=== PATIENT | female | born 1985 | race Caucasian/White ===

== ENCOUNTER → 2021-08-25 11:04 | Outpatient (CLI) | payer OTHER, SELFPAY ==
[2021-08-25 12:13] LABS: Add Manual Diff / Slide Review NO; Basophils Absolute Auto 0 /uL (0-100); Basophils Percent Auto 0.5 % (0-2); Eosinophils Absolute Auto 100 /uL (0-450); Eosinophils Percent Auto 0.8 % (2-4); Hematocrit 40.5 % (36-46); Lymphocytes Absolute Auto 2600 /uL (1100-4500); Mean Corpuscular HGB Conc 32.2 % (30-36); Mean Corpuscular Hemoglobin 26.4 PG (26-34); Monocytes Absolute Auto 600 /uL (0-900); Monocytes Percent Auto 8.1 % (3-14); Neutrophils Absolute Auto 4000 /uL (1500-7000); Neutrophils Percent Auto 54.6 % (50-75); Platelet Count 434 X10^3/uL (150-400); Red Blood Cell Count 4.94 X10^6/uL (4.0-5.2); White Blood Cell Count 7.3 X10^3/uL (4.5-11.0)
[2021-08-25 13:05] LABS: Free T4, Direct Thyroxine 1.12 ng/dL (0.78-2.19)
[2021-08-25 13:19] LABS: Thyroid Stimulating Hormone 4.58 uIU/mL (0.47-4.68)
== END ==
PROVIDERS: Referring Provider Obstetrics & Gynecology; Visit Provider Obstetrics & Gynecology
DX: N93.9 Abnormal uterine and vaginal bleeding, unspecified (principal)
CPT/HCPCS: 36415; 84439; 84443; 85025

== ENCOUNTER → 2021-11-07 16:41 | Outpatient (CLI) | payer OTHER, SELFPAY ==
[2021-11-11 06:19] LABS: Candida species Negative (Negative); Gardnerella vaginalis Positive (Negative); Trichomoas vaginalis Negative (Negative)
== END ==
PROVIDERS: Visit Provider Obstetrics & Gynecology
DX: N76.0 Acute vaginitis (principal)
CPT/HCPCS: 87070; 87205; 87480; 87510; 87660

== ENCOUNTER → 2022-07-01 14:48 | Outpatient (CLI) | payer OTHER, SELFPAY ==
[2022-07-01 17:13] LABS: COVID19 -Nasal RAPID Negative (Negative)
== END ==
PROVIDERS: PCP Family Medicine; Visit Provider Obstetrics & Gynecology
DX: Z20.822 Contact with and (suspected) exposure to COVID-19 (principal); Z01.812 Encounter for preprocedural laboratory examination
CPT/HCPCS: 87635

== ENCOUNTER 2022-07-02 12:24 | Day surgery (SDC) | payer OTHER, SELFPAY ==
[2022-07-01 13:52] VITALS: BMI 48.2
[2022-07-02 12:54] VITALS: BP 150/87; PULSE 89; RESP 20; TEMP 36.6; O2SAT 98; BMI 48.2
[2022-07-02] MEDS: SCOPOLAMINE 1 PATCH TOP (13:08)
[2022-07-02] MEDS: ACETAMINOPHEN IV 1,000 MG/100 ML VIAL 400 MG IV (13:08)
[2022-07-02] MEDS: LACTATED RINGERS 1,000 ML 42 ML IV (13:09)
--- NOTE | 2022-07-02 13:38 | PM.PREOP ---
Pre-operative Note COVID-19 COVID-19 status: Negative Result date/Date tested (Pos, Neg/Pending): 07/01/22 Criteria for continued procedure: Non-surgical alternatives not available or appropriate per current SOC Interval Note History & Physical reviewed/Exam performed by Physician: Yes Changes to H&P: No
--- NOTE | 2022-07-02 14:23 | SUR.OPER ---
Lithotomy on padded OR bed. [place] Pad Positioner under torso. Head on pillow, arms padded and tucked at sides. Legs secured in padded yellow fins stirrups. wedge under torso, under pink pad
[2022-07-02] MEDS: CEFAZOLIN 3 GM IN 0.9 % NACL 3 GM/100 ML PLAST..BAG IV (14:40)
[2022-07-02 15:16] VITALS: BP 177/99; PULSE 106; RESP 12; TEMP 36.4; O2SAT 99
[2022-07-02 15:19] VITALS: BP 183/102; PULSE 96; RESP 18; O2SAT 100
--- NOTE | 2022-07-02 15:19 | P.OP_ITS ---
Operative Date/Time/Diagnoses Date of procedure: 07/02/22 Time of procedure: 14:00 Pre-op diagnosis: Menorrhagia Malpositioned intrauterine device Post-op diagnosis: same Procedure & Clinicians Procedure: Procedures Operation Date: 07/02/22 13:30 Actual Procedure Side Surgeon p laparoscopy with IUD removal (aborted laparoscopic hysterectomy) Jay Jay Wild MD Indications: Tiara is a 37-year-old nulligravida, LMP 06/15/2022 - 06/20/2022 with extremely heavy flow, clots, and cramping who presented earlier this year for discussion of options related to her long history of heavy and unpredictable menses.? Menarche occurred at age 16 and she was placed on oral contraceptives at age 18 due to becoming sexually active.? She was switch to NuvaRCoolerado as a senior in college which worked extremely well.? After year 2 of NuvaRing use however her insurance coverage changed and would not cover NuvaRing you so she returned to the use of combination oral contraceptives which resulted in continuous breakthrough bleeding.? Her periods also were starting to become longer and heavier but remain regular with the breakthrough bleeding.? She subsequently returned to using NuvaRing after a couple of years of combination OC use but the use of NuvaRing was not as effective as it had been previously.? In June [address] Caro Yang in our office where options were discussed and blood work performed which showed that she was not anemic and had normal thyroid studies.? She was initiated on Depo-Provera which provided some improvement initially but the improvement with short lived in her periods returned to being extremely heavy.? Following the trial of Depo-Provera, she had a Mirena IUD inserted in September 2021 which was extremely painful and the pain lingered for several weeks after insertion.? Her bleeding again improved initially but since November 2021 the patient has had monthly periods lasting 7-10 days with the 1st 3-4 days being extremely heavy requiring at least 2 menstrual diapers daily and at least 1 menstrual diaper daily for the remainder of the.? Her cramping has been mild but she is passing large clots.? Her last Pap smear was 2 years ago and it was normal along with all her previous Paps.? Patient has never had endometrial biopsy performed and has never been trialed on tranexamic acid.? Recent pelvic ultrasound performed 04/16/2022 at [facility] shows the uterus to be retroverted and normal in size at 6.9 x 3.4 x 5.3 cm.? The myometrium is described as homogeneous.? The endometrium measures 7-8 mm in combined thickness.? The IUD is abnormally low lying and seen within the cervical canal.? The ovaries are both normal in size with the right ovary measuring 3.1 x 3.5 x 2.6 cm and the left measuring 2.3 x 2.6 x 1.9 cm.? The ovary 7 normal sonographic appearance with a dominant follicle seen involving the right ovary that measures 2.4 cm which is considered to be within physiologic limits.? Less than 12 follicles can be seen involving each ovary and no adnexal masses were noted. The patient is extremely frustrated by her extremely heavy periods which leave her unable to perform many of her normal daily activities and unable to work at times.? Use of combination oral contraceptives and NuvaRing have not been beneficial.? Insertion of her Mirena IUD was exceedingly painful and has not provided any significant benefit.? Patient has been counseled extensively regarding options and does not wish to have an endometrial ablation performed as no guarantee can be made that she will be amenorrheic following the procedure.? She also declines a trial of tranexamic acid and does not wish to have an endometrial biopsy performed.? She understands that although unlikely, the presence of an occult endometrial neoplasm can not be excluded without endometrial sampling.? Her strong desire is to proceed with hysterectomy and bilateral salpingectomy with ovarian preservation.? She understands the potential risks and complications associated with such procedure and is adamant in her desire to proceed.? Options were discussed to include total laparoscopic hysterectomy with bilateral salpingectomy or laparoscopic supracervical hysterectomy with bilateral salpingectomy and she would prefer total laparoscopic hysterectomy since no Paps will be required following TLH.? She presents today for for her scheduled surgery. Surgeon: Jay Jay Wild Operations Inspector: Francy Colon Anesthesia Type: General Operative Notes Findings: The introitus is virginal thus and the vaginal diameter narrow. Speculum examination under anesthesia shows the inferior tip of the Mirena IUD protruding from the cervical os with strings attached. The IUD was removed intact. The uterine cavity sounds to 8 cm in the mid plane. Laparoscopy shows the uterus to be upper limits of normal size and confirms its mid-plane orientation. The anterior cul-de-sac is without adhesions or other abnormalities. 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 Both ovaries appeared to be normal in size and the fallopian tubes are also normal. The appendix could not be visualized. The upper abdomen is normal to laparoscopic inspection. There was a large band of what appears to be adipose tissue extending from the anterior abdominal wall down into the lower abdomen immediately ventral to anterior cul-de-sac which obscured visualization of the pelvis to the point that the pelvis could not be fully visualized. This large band of tissue was hanging downward from the anterior abdominal wall and without the ability to fully visualize the pelvis it was deemed unsafe to continue with the planned total laparoscopic hysterectomy without benefit of robotic surgical capability. As result the pelvis was documented photographically and planned total laparoscopic hysterectomy aborted. Closure Type: primary Specimen(s): none Estimated blood loss (mL): 15 Blood products transfused: none Procedure in detail: With the patient under satisfactory general endotracheal anesthesia in the modified dorsal lithotomy position, the perineum, vagina, and abdomen were prepped and draped in the usual fashion for TLH and IUD removal. Pre-surgical safety time-out was then taken in accordance with [facility] OR protocols. A Quick catheter was inserted in the bladder for drainage and a speculum was inserted in the vagina. The cervix was visualized with significant difficulty and the distal end of the IUD was seen to be protruding from the cervical os. IUD was grasped with ring forceps and removed intact without difficulty. The VCare manipulator with small cup was then placed in the usual manner after dilation of the cervical canal to 5 mm with Hegar dilators. The patient was then repositioned and preparations made for laparoscopy. The umbilicus was then infiltrated with 0.5% Marcaine with epinephrine and a 1 cm vertical umbilical incision was made in the skin of the inferior umbilicus. A 10 cm Veress needle was then used to insufflate the abdomen with carbon dioxide and a long 5 mm trocar and sleeve were then introduced through the incision into the abdominal cavity. Presence of the trocar and sleeve in the abdominal cavity was confirmed laparoscopically and a 2nd and 3rd 5 mm trocar and sleeve were placed in the left and right mid quadrants using a similar technique. Using a 3 puncture technique, the pelvis and abdomen were thoroughly visualized with the findings as noted above. Unfortunately despite best efforts, the large band of adipose tissue hanging down from the anterior abdominal wall could not be held aside sufficiently to be able to fully expose the pelvis and after numerous attempts to do so, the decision was made for safety reasons to abort the procedure in favor of referral of the patient to a center with robotic surgery capability. Accordingly the pneumoperitoneum was vented and the laparoscopy port incisions closed with 4-0 Monocryl using inverted interrupted stitches. Skin glue was applied to the incisions and appropriate dressings applied. Patient was then awakened from anesthesia and transported to the PACU after having tolerated the procedure well. Complications: none Post-operative Condition: stable Disposition: PACU Plan for aftercare: Patient will be seen in the office for routine follow-up in 2 weeks and in the interim, our office will initiate an expedited referral to [facility] provider(s) who can perform her TLH using robotic surgery techniques.
[2022-07-02 15:24] VITALS: BP 160/97; PULSE 83; RESP 14; TEMP 36.4; O2SAT 100
[2022-07-02 15:30] VITALS: BP 163/104; PULSE 90; RESP 18; TEMP 36.4; O2SAT 98
--- NOTE | 2022-07-02 15:39 | SUR.PHASEII ---
Dr Pierre Torres notified that pt BP was 163/104, not in pain, but upset that procedure was aborted. Dr Torres stated that pt can discharge home.
[2022-07-02 16:10] VITALS: BP 147/97; PULSE 84; RESP 12; TEMP 36.5; O2SAT 100
== END 2022-07-02 16:15 | disposition home or self-care (01) ==
PROVIDERS: PCP Family Medicine; Referring Provider Obstetrics & Gynecology; Visit Provider Obstetrics & Gynecology
PROC: 0UT94ZZ Resection of Uterus, Percutaneous Endoscopic Approach (ICD-10-PCS; CPT 49320; principal; 2022-07-02 13:30)
DX: N92.0 Excessive and frequent menstruation with regular cycle (principal); T83.89XA Other specified complication of genitourinary prosthetic devices, implants and grafts, initial encounter; Z30.432 Encounter for removal of intrauterine contraceptive device; N73.6 Female pelvic peritoneal adhesions (postinfective)
CPT/HCPCS: 49320; 58301; J0131; J0690; J1100; J2250; J2405; J2704; J3010